=== PATIENT | male | born 1945 | race Caucasian/White ===

== ENCOUNTER 2022-12-13 14:55 | Emergency (ER) | payer OTHER ==
[2022-12-13] MEDS ORDERED: MAGNESIUM SULFATE 1 gm IVPB 1 GM/100 ML BAG IV ONE (15:18)
[2022-12-13] MEDS ORDERED: GLUCAGON 1 MG/VIAL ONE ×2 (15:19→16:50)
[2022-12-13] MEDS ORDERED: FAMOTIDINE 20 MG/2 ML VIAL IV ONE (15:19)
[2022-12-13] MEDS ORDERED: MAGNES/ALUMIN/SIMET 30ML UCUP ONE (17:51)
--- NOTE | 2022-12-13 18:05 | ER ---
Nurse's Notes [facility] Name: Pablo Thomas Age: 77 yrs Sex: Male : 1945 Arrival Date: 12/13/2022 Time: 14:55 Bed 7 Private MD: Diagnosis: Esophageal obstruction-Partial, improved Presentation: 12/13 15:02 Chief complaint: Patient states: Feels like meat is stuck in esophagus. + SOB. ss Coronavirus screen: Vaccine status: Patient reports receiving the 2nd dose of the covid vaccine. Client denies travel out of the [place] in the last 14 days. At this time, the client does not indicate any symptoms associated with coronavirus-19. Ebola Screen: Patient denies travel to an Ebola-affected area in the 21 days before illness onset. Initial Sepsis Screen: Does the patient meet any 2 criteria? No. Patient's initial sepsis screen is negative. Does the patient have a suspected source of infection? Yes: Other: r/o FP of esophagus. Risk Assessment: Do you want to hurt yourself or someone else? Patient reports no desire to harm self or others. Onset of symptoms was December 13, 2022. 15:02 Method Of Arrival: Wheelchair ss 15:02 Acuity: TAURUS 2 ss Triage Assessment: 16:07 General: Appears in no apparent distress. uncomfortable, Behavior is calm, cooperative. cm10 Pain: Complains of pain in Throat. EENT: Reports food bolus stuck in throat. Cardiovascular: No deficits noted. Capillary refill < 3 seconds. Respiratory: No deficits noted. Airway is patent Respiratory effort is even, unlabored, Respiratory pattern is regular, symmetrical. Historical: - Allergies: 15:02 No Known Allergies; ss - PMHx: 15:02 Hypertensive disorder; ss - PSHx: 15:02 B hip surgeries; ss - Immunization history:: Client reports receiving the 2nd dose of the Covid vaccine. - Social history:: Smoking status: Patient denies any tobacco usage or history of. - Family history:: not pertinent. - Hospitalizations: : No recent hospitalization is reported. Screenin:11 [facility] ED Fall Risk Assessment (Adult) History of falling in the last 3 months, cm10 including since admission No falls in past 3 months (0 pts) Confusion or Disorientation No (0 pts) Intoxicated or Sedated No (0 pts) Impaired Gait No (0 pts) Mobility Assist Device Used No (0 pt) Altered Elimination No (0 pt) Score/Fall Risk Level 0 - 2 = Low Risk Oriented to surroundings, Maintained a safe environment, Hourly rounding (assess needs \T\ fall precautionary measures) done. Abuse screen: Denies threats or abuse. Denies injuries from another. Nutritional screening: No deficits noted. Tuberculosis screening: No symptoms or risk factors identified. Assessment: 16:07 Reassessment: Pt states that he feels a little better after drinking a Pepsi. cm10 17:47 Reassessment: Pt states that he continues to improve. cm10 Vital Signs: 15:02 BP 180 / 99; Pulse 64; Resp 18; Temp 97.8; Pulse Ox 99% ; Pain 10/10; ss 16:10 BP 173 / 90; Pulse 69; Resp 18; Pulse Ox 99% on R/A; ld1 16:40 BP 178 / 95; Pulse 62; Resp 18; Pulse Ox 98% on R/A; ld1 18:00 BP 173 / 87; Pulse 66; Resp 18; Pulse Ox 97% on R/A; cm10 15:02 Pain Scale: Adult ss ED Course: 14:56 Patient arrived in ED. am2 14:57 Arden Fine MD is Attending Physician. rn 15:01 Arm band placed on Patient placed in an exam room, on a stretcher. ss 15:03 Triage completed. ss 15:22 Inserted saline lock: 18 gauge in right antecubital area, using aseptic technique. cm10 15:23 Bre Vega, SERAFIN is Primary Nurse. cm10 18:11 No provider procedures requiring assistance completed. IV discontinued, intact, cm10 bleeding controlled, No redness/swelling at site. Pressure dressing applied. 18:14 Patient has correct armband on for positive identification. cm10 Administered Medications: 15:22 Drug: Magnesium Sulfate IVPB 1 grams Route: IVPB; Infused Over: 1 hrs; Site: right cm10 antecubital; 15:22 Drug: Glucagon IVP 1 mg Route: IVP; Site: right antecubital; cm10 17:55 Follow up: Response: No adverse reaction cm10 15:22 Drug: Famotidine IVP 20 mg Route: IVP; Site: right antecubital; cm10 17:55 Follow up: Response: No adverse reaction cm10 16:51 Drug: Glucagon IVP 1 mg Route: IVP; Site: right antecubital; cm10 17:55 Follow up: Response: No adverse reaction cm10 17:53 Drug: Alum-Mag Hydroxide-Simeth PO Suspension (200 mg-200 mg-20 mg/5 mL) 30 ml Route: cm10 PO; 17:55 Follow up: Response: No adverse reaction cm10 Medication: 18:11 VIS not applicable for this client. cm10 Outcome: 18:04 Discharge ordered by . rn 18:13 Discharged to home ambulatory. cm10 18:13 Condition: good 18:13 Discharge instructions given to patient, Instructed on discharge instructions, follow up and referral plans. Demonstrated understanding of instructions, follow-up care, Prescriptions given X 18:14 Patient left the ED. cm10 Signatures: Arden Fine MD MD rn Blanchard, Shelby, RN RN ss Moreno, Amanda am2 Sims, Lauren, RN RN ld1 Bre Vega RN RN cm10
--- NOTE | 2022-12-13 18:05 | EDPHYS ---
Physician Documentation [facility] Name: Pablo Thomas Age: 77 yrs Sex: Male : 1945 Arrival Date: 12/13/2022 Time: 14:55 Bed 7 Private MD: ED Physician Arden Fine HPI: 12/13 15:52 This 77 yrs old Male presents to ER via Wheelchair with complaints of Foreign Body In rn Throat - meat/food. 15:52 The patient or guardian reports the patient has a suspected foreign body, of the rn throat. The reported likely foreign body is piece of meat. Onset: The symptoms/episode began/occurred 2 hour(s) ago. Current symptoms: foreign body sensation. The patient has not experienced similar symptoms in the past. Pt reports eating a "big piece of meat", felt it get stuck in throat, does not feel like aspirated, no sob. No fever. Has never happened before. No vomiting. Able to get water down. . Historical: - Allergies: 15:02 No Known Allergies; ss - PMHx: 15:02 Hypertensive disorder; ss - PSHx: 15:02 B hip surgeries; ss - Immunization history:: Client reports receiving the 2nd dose of the Covid vaccine. - Social history:: Smoking status: Patient denies any tobacco usage or history of. - Family history:: not pertinent. - Hospitalizations: : No recent hospitalization is reported. ROS: 15:52 Constitutional: Negative for fever, chills, and weight loss, Abdomen/GI: Negative for rn abdominal pain, nausea, vomiting, diarrhea, and constipation. Exam: 15:52 Constitutional: This is a well developed, well nourished patient who is awake, alert, rn and in no acute distress. ENT: No stridor Neck: NO swelling or crepitus Cardiovascular: Regular rate and rhythm. No pulse deficits. Respiratory: No increased work of breathing, no retractions or nasal flaring. Abdomen/GI: Soft, non-tender Vital Signs: 15:02 BP 180 / 99; Pulse 64; Resp 18; Temp 97.8; Pulse Ox 99% ; Pain 10/10; ss 16:10 BP 173 / 90; Pulse 69; Resp 18; Pulse Ox 99% on R/A; ld1 16:40 BP 178 / 95; Pulse 62; Resp 18; Pulse Ox 98% on R/A; ld1 18:00 BP 173 / 87; Pulse 66; Resp 18; Pulse Ox 97% on R/A; cm10 15:02 Pain Scale: Adult ss MDM: 14:57 Patient medically screened. rn 18:01 Data reviewed: vital signs, nurses notes, and as a result, I will discharge patient. rn Counseling: I had a detailed discussion with the patient and/or guardian regarding: the historical points, exam findings, and any diagnostic results supporting the discharge/admit diagnosis, the need for outpatient follow up, to return to the emergency department if symptoms worsen or persist or if there are any questions or concerns that arise at home. Response to treatment: the patient's symptoms have mildly improved after treatment, and as a result, I will discharge patient. Special discussion: I discussed with the patient/guardian in detail that at this point there is no indication for admission to the hospital. It is understood, however, that if the symptoms persist or worsen the patient needs to return immediately for re-evaluation. Based on the history and exam findings, there is no indication for further emergent testing or inpatient evaluation. I discussed with the patient/guardian the need to see the community advocate for further evaluation of the symptoms. I discussed with the patient/guardian the need to see the primary care provider for further evaluation of the symptoms. ED course: Pt feels better, feels like it has improved/moved down, would like to go home to try and give it more time instead of admission/transfer for GI removal. Understands risks and benefits. Return precautions given and understood. . 12/13 15:03 Order name: IV Start; Complete Time: 15:22 rn Administered Medications: 15: Drug: Magnesium Sulfate IVPB 1 grams Route: IVPB; Infused Over: 1 hrs; Site: right cm10 antecubital; 15:22 Drug: Glucagon IVP 1 mg Route: IVP; Site: right antecubital; cm10 17:55 Follow up: Response: No adverse reaction cm10 15:22 Drug: Famotidine IVP 20 mg Route: IVP; Site: right antecubital; cm10 17:55 Follow up: Response: No adverse reaction cm10 16:51 Drug: Glucagon IVP 1 mg Route: IVP; Site: right antecubital; cm10 17:55 Follow up: Response: No adverse reaction cm10 17:53 Drug: Alum-Mag Hydroxide-Simeth PO Suspension (200 mg-200 mg-20 mg/5 mL) 30 ml Route: cm10 PO; 17:55 Follow up: Response: No adverse reaction cm10 Disposition Summary: 12/13/22 18:04 Discharge Ordered Location: Home rn Problem: new rn Symptoms: have improved rn Condition: Stable rn Diagnosis - Esophageal obstruction - Partial, improved rn Followup: rn - With: Private Physician - When: As needed - Reason: Recheck today's complaints, Re-evaluation by your physician Forms: - Medication Reconciliation Form rn - Thank You Letter rn - Antibiotic returning officer - Prescription Opioid Use rn - [email or web address] rn Signatures: Arden Fine MD MD rn Blanchard, Shelby, RN RN ss Martinez, Clarissa, RN RN cm10
[2022-12-13 19:15] VITALS: TEMP 97.8
[2022-12-13 19:19] VITALS: BP 173/87; O2SAT 97
== END 2022-12-13 18:14 | disposition home or self-care (01) ==
LOC: ER 14:55
DX: K22.2 Esophageal obstruction (principal); I10 Essential (primary) hypertension
CPT/HCPCS: 96375; 96374; 99284; J1610 ×2; J3475